=== PATIENT | male | born 1990 | race Caucasian/White ===

== ENCOUNTER 2016-04-21 19:37 | Emergency (ER) ==
[2016-04-21 19:45] VITALS: BP 117/67
--- NOTE | 2016-04-21 20:03 | PROVIDER DOCUMENTATION ---
HPI-Musculoskeletal Pain/Inj - GENERAL Source: patient - HX OF PRESENT ILLNESS-MUSKULOSKELTAL Quality of Pain: reports: aching, cramping Severity in ED: mild Onset/Duration: just prior to arrival Timing: still present Modifying Factors: worse with: massage, palpation Any recent injury?: Yes - UPPER EXTREMITY PAIN/INJURY Extremities Pain Location: 5th finger: right (cracked fingernail) Context / Method of Injury: reports: direct blow Associated Symptoms: denies: muscle spasms, numbness in upper ext, sensory/ motor loss, tingling in upper ext, weakness in upper ext <Malik Moraes - Last Filed: 04/21/16 19:58> <Suze Burk - Last Filed: 04/21/16 20:07> - GENERAL Chief Complaint: Extremity Injury Stated Complaint: RT HAND FINGER PAIN Time Seen by Provider: 04/21/16 19:46 - HX OF PRESENT ILLNESS-MUSKULOSKELTAL Nature of Presenting Problem: Pt is a 25 yom who presents to ER with CC of R pinky injury. Pt reports he slammed his pinky in his car's trunk/starr and cracked the top of his R pinky, approximately 2mm from the tip. Pt denies taking any prearrival medicine for pain, but did put tape on it. Pt was offered, but refused a digital nerve block. (Malik Moraes) Review of Systems - Adult - REVIEW OF SYSTEMS - ADULT Constitutional: denies: chills, fever, fatique, night sweats Eyes: reports: no symptoms reported Ears, Nose, Mouth & Throat: reports: no symptoms reported Cardiovascular: reports: no symptoms reported Respiratory: reports: no symptoms reported Gastrointestinal: reports: no symptoms reported Genitourinary: reports: no symptoms reported Musculoskeletal: reports: other (R pinky tenderness). denies: bone pain, back pain, frequent leg cramps, joint pain, joint swelling, muscle aches, muscle weakness, neck pain Integumentary: reports: nail changes. denies: hives, hair loss, itching, mole changes, rash, skin sores/ulcer, skin thickening Neurological: reports: no symptoms reported Psychiatric: reports: no symptoms reported Endocrine: reports: no symptoms reported Hematologic/Lymphatic: reports: no symptoms reported Allergic/Immunologic: reports: no symptoms reported All Other Systems: Reviewed and Negative <Malik Moraes - Last Filed: 04/21/16 19:58> Past History - Adult - PAST MEDICAL HISTORY-ADULT Review of Records: reports: Nursing Assessment Review, Medications Reviewed - IMMUNIZATION STATUS Childhood Immunizations: See Nurse Assessment Flu Vaccine: See Nurse Assessment <Malik Moraes - Last Filed: 04/21/16 19:58> Physical Exam-Injury Related - Physical Exam-Injury Related Initial Vital Signs Reviewed: Yes General Appearance: appears well, alert, no apparent distress Respiratory: chest non-tender, lungs clear, normal breath sounds. negative: respiratory distress, decreased breath sounds, accessory muscle use, wheezing Cardiovascular: normal peripheral pulses, regular rate, rhythm. negative: bradycardia, tachycardia, irregularly irregular Extremity: normal range of motion, non-tender, normal gait, tenderness. negative: erythema, inflammation, pulse deficit, slow capillary refill, swelling Integumentary: normal color, warm/dry, blanching, other (cracked R pinky nail) Neurologic: grossly normal, no motor/sensory deficits Psych/Mental Status: normal mood/affect, normal thought content, normal thought process, oriented x 3 <Malik Moraes - Last Filed: 04/21/16 19:58> Progress - XRAY 1 XRAY: Right XRAY Study: Hand Impression: See EMR Report XRAY Interpretation: No fx <Malik Moraes - Last Filed: 04/21/16 19:58> <Suze Burk - Last Filed: 04/21/16 20:07> - PLAN OF CARE/RESULTS Progress/Plan/Lab Results: Vital Signs - 24 hr 04/21/16 19:45 Temperature 98.1 F Pulse Rate 98 H Respiratory 16 Rate Blood Pressure 117/67 O2 Sat by Pulse 100 Oximetry Orders Category Date Time Status FINGER(S)-RIGHT [RAD] Stat Exams 04/21/16 19:47 Taken (Malik Moraes) Vital Signs Temp Pulse Resp BP Pulse Ox 04/21/16 19:45 98.1 F 98 H 16 117/67 100 erythromycin base [Erythromycin Base] Allergy (Mild, Verified 11/18/13 03:14) DIARRHEA Penicillins Allergy (Mild, Verified 11/18/13 03:14) DIARRHEA Hydrocodone/APAP 5 mg/325 mg [[place]-5] 1 - 2 tab PO Q6H PRN PRN #12 tablet 11/18 Tramadol [Ultram] 50 mg PO Q8HR #10 tablet 04/21/16 Orders Category Date Time Status Finger Splint DIRECTED Care 04/21/16 20:06 Active Wound Care DIRECTED Care 04/21/16 20:06 Active FINGER(S)-RIGHT [RAD] Stat Exams 04/21/16 19:47 Taken Hydrocodone/APAP 5 mg/325 mg [[place]-5] Med 04/21/16 20:06 Once 1 each PO NOW ONE (Suze Burk) Departure <Malik Moraes - Last Filed: 04/21/16 19:58> - Departure Time of Disposition Order: 20:05 Certified Medical Emergency: Emergent <Suze Burk - Last Filed: 04/21/16 20:07> - Departure DIAGNOSIS: Finger laceration Qualifiers: Encounter type: initial encounter Qualified Code(s): S61.219A - Laceration without foreign body of unspecified finger without damage to nail, initial encounter Disposition: HOME 01 Condition: Stable Additional Instructions: ED Follow Up Instructions: You have been treated by a care provider in the Emergency Department. These instructions are being provided to you so you can have an understanding of how to care for yourself upon discharge. Upon discharge from the Emergency Department, you are responsible for making arrangements for follow-up care by a physician of your choice. Take all prescribed medications as directed. Return to the Emergency Department immediately for any new or worsening symptoms. You may call the Physician Referral phone number at [phone] to obtain a list of Physicians who are taking new patients. Prescriptions: Tramadol [Ultram] 50 mg PO Q8HR #10 tablet Attestation - Scribe Verification/Attestation Scribe:: Malik Moraes Acting as Scribe for:: Suze Burk Scribe documention review:: This chart was documented by a scribe and accurately reflects the service the provider performed and the decisions made by the provider. <Malik Moraes - Last Filed: 04/21/16 19:58> Physician Attestation
[2016-04-21] MEDS ORDERED: NORCO-5 PO ONE (20:06)
--- NOTE | 2016-04-22 08:33 | Diag Imaging Result Document ---
PROCEDURE NAME: FINGER(S)-RIGHT - 04/21/2016 RIGHT FIFTH FINGER, THREE VIEWS: FINDINGS: No fracture. No dislocation. No foreign body. IMPRESSION: No acute bony injury.
== END 2016-04-21 20:46 | disposition home or self-care (01) ==
LOC: ED 19:37
DX: S61.316A Laceration without foreign body of right little finger with damage to nail, initial encounter (principal); M79.644 Pain in right finger(s); W23.0XXA Caught, crushed, jammed, or pinched between moving objects, initial encounter
CPT/HCPCS: 73140